=== PATIENT | female | born 1980 | race African-American/Black ===

== ENCOUNTER 2016-06-25 09:23 | Emergency (ER) | payer OTHER ==
[~2016-06-25] VITALS: Ht 157.5 cm; Wt 103.2 kg
[2016-06-25 09:32] VITALS: TEMP 99.1
[2016-06-25 10:10] LABS: BASO % 0.3 % (0.0-2.0); EOS # 0.1 (0.0-0.7); EOS % 1.6 % (0-4.0); GRAN # 7.1 (1.4-6.5); GRAN % 80.2 % (42.2-75.2); LYMPH # 1.2 (1.2-3.4); LYMPH % 13.1 % (20.0-51.0); MEAN CELL VOLUME 77 fl (80.0-100.0); MEAN CORPUSCULAR HGB CONC 32 g/dl (33.0-37.0); MEAN PLATELET VOLUME 8.9 fl (7.4-10.4); MONO # 0.4 (0.1-0.6); MONO % 4.5 % (1.7-9.3); PLATELET COUNT 288 K/mm3 (130-400); REDCELL DISTRIBUTION WIDTH-CV 14.6 % (11.5-14.5); WHITE BLOOD COUNT 8.9 K/mm3 (4.8-10.8)
[2016-06-25 10:11] LABS: HEMATOCRIT 36.8 % (37.0-47.0); HEMOGLOBIN 11.7 g/dl (12.5-16.0); MEAN CORPUSCULAR HEMOGLOBIN 24 pg (27.0-31.0)
[2016-06-25] MEDS ORDERED: PERCOCET 325 MG1 TA2 PO (12:07)
[2016-06-25] MEDS ORDERED: ZOFRAN8 MG PO (12:07)
[2016-06-25] MEDS ORDERED: ULTRAM 50MG TAB50 MG PO (12:07)
[2016-06-25 12:33] VITALS: BP 134/88; PULSE 75
== END 2016-06-25 12:33 | disposition home or self-care (01) ==
LOC: COL.ER 09:23
PROVIDERS: Emergency Medicine
DX: O03.6 Delayed or excessive hemorrhage following complete or unspecified spontaneous abortion (principal)
CPT/HCPCS: J1170; J2405; J2765